=== PATIENT | male | born 1995 ===

== ENCOUNTER 2019-04-07 08:09 | Emergency (ER) | payer SELFPAY ==
[2019-04-07] MEDS ORDERED: NA CHLORIDE 0.9% 1,000 ML ONE ×2 (08:44→10:31)
[2019-04-07] MEDS ORDERED: MORPHINE 4 MG/ML SYR ONE (08:44)
[2019-04-07] MEDS ORDERED: ONDANSETRON 4 MG/2 ML VIAL ONE (08:44)
--- NOTE | 2019-04-07 09:06 | RAD REPORT ---
EXAM DESCRIPTION: CT - Stone Protocol - 04/07/2019 8:54 am CLINICAL HISTORY: Flank pain. FLANK PAIN COMPARISON: No comparisons TECHNIQUE: Axial images were obtained without oral or IV contrast. Lack of contrast limits solid org an and vascular assessment. The [id number] spans the entirety of the system partially obscuring uppermost abdomen and lung bases. Coronal reformatted images were obtained and reviewed. All CT scans are performed using dose optimization technique as appropriate and may include automated exposure control or mA/KV adjustment according to patient size. FINDINGS: The lower lung mckeon are clear. Imaged portions of the liver and spleen show no suspicious findings on non-contrast imaging. The panc reas and adrenal glands are normal. No pathologic lymphadenopathy in the abdomen or pelvis. 7 mm stone proximal left ureter (1400 HU) with mild left hydronephrosis. No bowel obstruction, free air, free fluid or abscess. Normal appendix noted. No significant bony abnormality. IMPRESSION: 7 mm mildly obstructing proximal left ureter stone.
[2019-04-07 09:25] LABS: Absolute Lymphocytes (CBC) 1.3 K/uL (0.7-4.9); Absolute Monocytes 0.7 K/uL (0.1-1.3); Absolute Neutrophil 9.5 K/uL (1.8-8.0); Basophils % 0.5 % (0-1.3); Eosinophils % 0.8 % (0-4.4); Hematocrit 44.6 % (39.6-49.0); MPV 7.2 fL (7.6-11.3); Monocytes % 5.9 % (3.3-12.3)
[2019-04-07] MEDS ORDERED: KETOROLAC 30 MG/ML INJ ONE (09:28)
[2019-04-07] MEDS ORDERED: TAMSULOSIN 0.4 MG SR CAP ONE (09:28)
[2019-04-07 09:34] LABS: ALT/SGPT 34 U/L (12-78); AST/SGOT 19 U/L (15-37); Albumin 4.5 g/dL (3.4-5.0); Alkaline Phosphatase 73 U/L (45-117); BUN Blood Urea Nitrogen 14 mg/dL (7-18); Bicarbonate 30 mmol/L (21-32); Bilirubin Direct 0.1 mg/dL (0-0.2); Bilirubin Total 0.3 mg/dL (0.2-1.0); Glucose Level 115 mg/dL (74-106); Lipase 130 U/L (73-393); Potassium 4.1 mmol/L (3.5-5.1); Protein, Total 7.7 g/dL (6.4-8.2); Sodium Level 143 mmol/L (136-145)
[2019-04-07 11:30] LABS: Urine Amorphous Sediment 2+ /HPF (NONE SEEN); Urine Bacteria <20 /HPF (NONE SEEN); Urine Culture Reflex Order NOT NEEDED; Urine RBC >50 /HPF (NONE SEEN)
--- NOTE | 2019-04-07 11:54 | ER ---
Nurse's Notes [facility] Name: Brad Feliciano Age: 23 yrs Sex: Male : 1995 Arrival Date: 04/07/2019 Time: 08:13 Bed 18 Private MD: Diagnosis: Left ureteral calculous Presentation: 04/07 08:24 Presenting complaint: Patient states: c/o left lower quad pain that started this em morning at 0600, reports subjective fever, nausea and vomiting x 3, denies burning with urination, diarrhea, normal BM yesterday. Transition of care: patient was not received from another setting of care. Onset of symptoms was April 07, 2019. Risk Assessment: Do you want to hurt yourself or someone else? Patient reports no desire to harm self or others. Initial Sepsis Screen: Does the patient meet any 2 criteria? No. Patient's initial sepsis screen is negative. Does the patient have a suspected source of infection? No. Patient's initial sepsis screen is negative. Care prior to arrival: None. 08:24 Method Of Arrival: Ambulatory em 08:29 Acuity: HEATH 3 iw Triage Assessment: 08:27 General: Appears in no apparent distress. uncomfortable, Behavior is cooperative, em anxious. Pain: Denies pain. Historical: - Allergies: 08:27 No Known Allergies; em - Home Meds: 08:27 None [Active]; em - PMHx: 08: None; em - PSHx: 08:27 None; em - Immunization history:: Adult Immunizations unknown. - Social history:: Smoking status: Patient/guardian denies using tobacco. - Ebola Screening: : Patient negative for fever greater than or equal to 101.5 degrees Fahrenheit, and additional compatible Ebola Virus Disease symptoms Patient denies exposure to infectious person Patient denies travel to an Ebola-affected area in the 21 days before illness onset No symptoms or risks identified at this time. Screenin:27 Abuse screen: Denies threats or abuse. Nutritional screening: No deficits noted. em Tuberculosis screening: No symptoms or risk factors identified. Fall Risk None identified. Assessment: 08:27 General: Appears in no apparent distress. uncomfortable, Behavior is cooperative, em anxious, Reports "feeling hot". Pain: Complains of pain in left lower quadrant Pain currently is 7 out of 10 on a pain scale. Quality of pain is described as sharp, Pain began 2 hours ago. Is continuous. Neuro: Level of Consciousness is awake, alert, obeys commands, Oriented to person, place, time, situation. Cardiovascular: Capillary refill < 3 seconds Patient's skin is warm and dry. Respiratory: Airway is patent Respiratory effort is even, unlabored, Respiratory pattern is regular, symmetrical. GI: Abdomen is flat, Bowel sounds present X 4 quads. Reports nausea, vomiting, Patient currently denies diarrhea. : Denies burning with urination. Derm: Skin is intact, is healthy with good turgor, Skin is pink, warm \\T\\ dry. Musculoskeletal: Capillary refill < 3 seconds, Range of motion: intact in all extremities. 08:50 Reassessment: rates pain 3/10 Patient states feeling better. em 09:45 Reassessment: Patient appears in no apparent distress at this time. Patient and/or em family updated on plan of care and expected duration. Pain level reassessed. Patient is alert, oriented x 3, equal unlabored respirations, skin warm/dry/pink. Patient states feeling better. 10:30 Reassessment: Patient appears in no apparent distress at this time. Patient and/or em family updated on plan of care and expected duration. Pain level reassessed. Patient is alert, oriented x 3, equal unlabored respirations, skin warm/dry/pink. 12:08 Reassessment: Patient appears in no apparent distress at this time. Patient and/or em family updated on plan of care and expected duration. Pain level reassessed. Patient is alert, oriented x 3, equal unlabored respirations, skin warm/dry/pink. Patient states feeling better. Patient states symptoms have improved. Vital Signs: 08:27 BP 151 / 82; Pulse 88; Resp 18; Temp 98.8(O); Pulse Ox 99% on R/A; Weight 96.62 kg; em Height 6 ft. 0 in. (182.88 cm); Pain 7/10; 09:30 BP 123 / 73; Pulse 96; Resp 18; Pulse Ox 99% on R/A; Pain 3/10; em 10:30 BP 124 / 78; Pulse 95; Resp 18; Pulse Ox 97% on R/A; Pain 3/10; em 11:52 BP 98 / 61; Pulse 70; Resp 16; Temp 97.6(O); Pulse Ox 99% on R/A; mh5 08:27 Body Mass Index 28.89 (96.62 kg, 182.88 cm) em ED Course: 08:13 Patient arrived in ED. tw3 08:17 Joo Godinez LVN is Primary Nurse. em 08:19 Neeraj Keller, PNEUMATIC TESTER MECHANIC is PHCP. pm1 08:19 Luis Kirkpatrick MD is Attending Physician. pm1 08:27 Arm band placed on. em 08:27 Patient has correct armband on for positive identification. Placed in gown. Bed in low em position. Adult w/ patient. Pulse ox on. NIBP on. 08:29 Triage completed. iw 08:35 Initial lab(s) drawn, by me, sent to lab. Inserted saline lock: 20 gauge in right em antecubital area, using aseptic technique. Blood collected. 08:[address] eh 08:53 CT completed. Patient tolerated procedure well. Patient moved back from CT. bq 08:54 CT Stone Protocol In Process Unspecified. EDMS 11:57 Kevin Stacy MD is Referral Physician. pm1 12:08 No provider procedures requiring assistance completed. IV discontinued, intact, em bleeding controlled, No redness/swelling at site. Pressure dressing applied. Administered Medications: 08:35 Drug: NS 0.9% 1000 ml Route: IV; Rate: 1000 ml; Site: right antecubital; iw 10:28 Follow up: IV Status: Completed infusion; IV Intake: 1000ml em 08:38 Drug: Zofran 4 mg Route: IVP; Site: right antecubital; iw 09:00 Follow up: Response: No adverse reaction; Nausea is decreased em 08:40 Drug: morphine 4 mg Route: IVP; Site: right antecubital; iw 09:00 Follow up: Response: No adverse reaction; Pain is decreased em 09:17 Drug: TORadol 30 mg Route: IVP; Site: right antecubital; iw 10:11 Follow up: Response: No adverse reaction; Pain is decreased em 09:20 Drug: Flomax 0.4 mg Route: PO; em 10:11 Follow up: Response: No adverse reaction em 10:28 Drug: NS 0.9% 1000 ml Route: IV; Rate: 1000 ml; Site: right antecubital; em 11:51 Follow up: IV Status: Completed infusion; IV Intake: 1000ml em 12:07 Drug: Cipro 500 mg Route: PO; em 12:09 Follow up: Response: Medication administered at discharge. em Intake: 10:28 IV: 1000ml; Total: 1000ml. em 11:51 IV: 1000ml; Total: 2000ml. em Outcome: 11:54 Discharge ordered by MD. pm1 12:08 Discharged to home ambulatory, with family. em 12:08 Condition: good 12:08 Discharge instructions given to patient, family, Instructed on discharge instructions, follow up and referral plans. medication usage, Demonstrated understanding of instructions, follow-up care, medications, Prescriptions given X 4. 12:09 Patient left the ED. em Signatures: Dispatcher [employer] EDStephen Dickens Betty bq Munoz, Edgar, MGMT CONSULTANT MGMT CONSULTANT em Karen Marroquin RN RN iw Marinas, Patrick, MOODY PNEUMATIC TESTER MECHANIC 1 Lianet Boyd [facility] [place], [place]orene 3
--- NOTE | 2019-04-07 11:54 | EDPHYS ---
Physician Documentation [facility] Name: Brad Feliciano Age: 23 yrs Sex: Male : 1995 Arrival Date: 04/07/2019 Time: 08:13 Bed 18 Private MD: ED Physician Luis Kirkpatrick HPI: 04/07 08:32 This 23 yrs old Male presents to ER via Ambulatory with complaints of Left pm1 Side Pain. 08:32 The patient complains of pain in the left low back. The pain radiates to the left lower pm1 quadrant. Onset: The symptoms/episode began/occurred this morning. Modifying factors: The symptoms are alleviated by nothing. the symptoms are aggravated by nothing. Associated signs and symptoms: Pertinent positives: nausea, vomiting, Pertinent negatives: diarrhea, dysuria, fever. Severity of pain: in the emergency department the pain is unchanged. The patient has experienced a previous episode, that went away without intervention. The patient has not recently seen a physician. Patient with constant left flank pain the waxes and wanes. No testicular pain or urinary symptoms. Historical: - Allergies: 08:27 No Known Allergies; em - Home Meds: 08:27 None [Active]; em - PMHx: 08: None; em - PSHx: 08:27 None; em - Immunization history:: Adult Immunizations unknown. - Social history:: Smoking status: Patient/guardian denies using tobacco. - Ebola Screening: : Patient negative for fever greater than or equal to 101.5 degrees Fahrenheit, and additional compatible Ebola Virus Disease symptoms Patient denies exposure to infectious person Patient denies travel to an Ebola-affected area in the 21 days before illness onset No symptoms or risks identified at this time. ROS: 08:37 Constitutional: Negative for fever, chills, and weight loss, Eyes: Negative for injury, pm1 pain, redness, and discharge, ENT: Negative for injury, pain, and discharge, Neck: Negative for injury, pain, and swelling, Cardiovascular: Negative for chest pain, palpitations, and edema, Respiratory: Negative for shortness of breath, cough, wheezing, and pleuritic chest pain. 08:37 : Negative for injury, bleeding, discharge, and swelling, MS/Extremity: Negative for injury and deformity, Skin: Negative for injury, rash, and discoloration, Neuro: Negative for headache, weakness, numbness, tingling, and seizure. 08:37 Abdomen/GI: Positive for nausea, Negative for vomiting, diarrhea, constipation. 08:37 Back: Positive for flank pain, on the left. Exam: 08:37 Constitutional: This is a well developed, well nourished patient who is awake, alert, pm1 and in no acute distress. Head/Face: Normocephalic, atraumatic. Eyes: Pupils equal round and reactive to light, extra-ocular motions intact. Lids and lashes normal. Conjunctiva and sclera are non-icteric and not injected. Cornea within normal limits. Periorbital areas with no swelling, redness, or edema. ENT: Nares patent. No nasal discharge, no septal abnormalities noted. Tympanic membranes are normal and external auditory canals are clear. Oropharynx with no redness, swelling, or masses, exudates, or evidence of obstruction, uvula midline. Mucous membranes moist. Neck: Trachea midline, no thyromegaly or masses palpated, and no cervical lymphadenopathy. Supple, full range of motion without nuchal rigidity, or vertebral point tenderness. No Meningismus. Chest/axilla: Normal chest wall appearance and motion. Nontender with no deformity. No lesions are appreciated. Cardiovascular: Regular rate and rhythm with a normal S1 and S2. No gallops, murmurs, or rubs. Normal PMI, no JVD. No pulse deficits. Respiratory: Lungs have equal breath sounds bilaterally, clear to auscultation and percussion. No rales, rhonchi or wheezes noted. No increased work of breathing, no retractions or nasal flaring. Abdomen/GI: Soft, non-tender, with normal bowel sounds. No distension or tympany. No guarding or rebound. No evidence of tenderness throughout. Skin: Warm, dry with normal turgor. Normal color with no rashes, no lesions, and no evidence of cellulitis. MS/ Extremity: Pulses equal, no cyanosis. Neurovascular intact. Full, normal range of motion. 08:37 Back: normal spinal alignment noted, CVA tenderness, that is mild, is noted on the left. 08:37 Neuro: Orientation: is normal, Motor: is normal, moves all fours, Sensation: is normal, no obvious gross deficits, Gait: is steady, at a normal pace, without difficulty. Vital Signs: 08:27 BP 151 / 82; Pulse 88; Resp 18; Temp 98.8(O); Pulse Ox 99% on R/A; Weight 96.62 kg; em Height 6 ft. 0 in. (182.88 cm); Pain 7/10; 09:30 BP 123 / 73; Pulse 96; Resp 18; Pulse Ox 99% on R/A; Pain 3/10; em 10:30 BP 124 / 78; Pulse 95; Resp 18; Pulse Ox 97% on R/A; Pain 3/10; em 11:52 BP 98 / 61; Pulse 70; Resp 16; Temp 97.6(O); Pulse Ox 99% on R/A; mh5 08:27 Body Mass Index 28.89 (96.62 kg, 182.88 cm) em MDM: 08:23 Patient medically screened. pm1 11:49 Data reviewed: vital signs. Data interpreted: Pulse oximetry: on room air is 97 %. pm1 Interpretation: normal. Counseling: I had a detailed discussion with the patient and/or guardian regarding: the historical points, exam findings, and any diagnostic results supporting the discharge/admit diagnosis, lab results, radiology results, the need for outpatient follow up, for definitive care, a urologist, to return to the emergency department if symptoms worsen or persist or if there are any questions or concerns that arise at home. 12:00 ED course: Patient without vomiting and pain. No UTI present. Therefore will trial pm1 patient at home with prescription medications. Return precautions given to patient. 04/07 08:30 Order name: Basic Metabolic Panel pm1 04/07 08:30 Order name: CBC with Diff; Complete Time: 09:33 pm04/07 08:30 Order name: Creatinine for Radiology; Complete Time: 09:33 pm04/07 08:30 Order name: Hepatic Function; Complete Time: 09:40 pm1 04/07 08:30 Order name: Lipase; Complete Time: 09:40 pm04/07 08:31 Order name: Basic Metabolic Panel; Complete Time: 09:40 EDMS 04/07 08:30 Order name: CT Stone Protocol; Complete Time: 09:12 pm04/07 10:37 Order name: Urine Microscopic Only; Complete Time: 11:42 pm1 04/07 10:44 Order name: Urine Dipstick--Ancillary (enter results) bd 04/07 08:30 Order name: IV Saline Lock; Complete Time: 08:43 pm1 04/07 08:30 Order name: Labs collected and sent; Complete Time: 08:43 pm1 04/07 08:30 Order name: Urine Dipstick-Ancillary (obtain specimen); Complete Time: 10:46 pm1 Administered Medications: 08:35 Drug: NS 0.9% 1000 ml Route: IV; Rate: 1000 ml; Site: right antecubital; iw 10:28 Follow up: IV Status: Completed infusion; IV Intake: 1000ml em 08:38 Drug: Zofran 4 mg Route: IVP; Site: right antecubital; iw 09:00 Follow up: Response: No adverse reaction; Nausea is decreased em 08:40 Drug: morphine 4 mg Route: IVP; Site: right antecubital; iw 09:00 Follow up: Response: No adverse reaction; Pain is decreased em 09:17 Drug: TORadol 30 mg Route: IVP; Site: right antecubital; iw 10:11 Follow up: Response: No adverse reaction; Pain is decreased em 09:20 Drug: Flomax 0.4 mg Route: PO; em 10:11 Follow up: Response: No adverse reaction em 10:28 Drug: NS 0.9% 1000 ml Route: IV; Rate: 1000 ml; Site: right antecubital; em 11:51 Follow up: IV Status: Completed infusion; IV Intake: 1000ml em 12:07 Drug: Cipro 500 mg Route: PO; em 12:09 Follow up: Response: Medication administered at discharge. em Disposition: 04/07/19 11:54 Discharged to Home. Impression: Left ureteral calculous. - Condition is Stable. - Discharge Instructions: Kidney Stones, Dietary Guidelines to Help Prevent Kidney Stones. - Prescriptions for Tylenol- Codeine #3 300-30 mg Oral Tablet - take 2 tablets by ORAL route every 6 hours As needed; 20 tablet. Zofran 4 mg Oral Tablet - take 1 tablet by ORAL route every 8 hours As needed; 20 tablet. Flomax 0.4 mg Oral Capsule, Sust. Release 24 hr - take 1 capsule by ORAL route once daily 1/2 hour following the same meal each day; 30 capsule. Cipro 500 mg Oral Tablet - take 1 tablet by ORAL route every 12 hours for 7 days; 14 tablet. - Medication Reconciliation Form, Thank You Letter, Antibiotic Education, Prescription Opioid Use form. - Follow up: Emergency Department; When: As needed; Reason: Worsening of condition. Follow up: Private Physician; When: 2 - 3 days; Reason: Recheck today's complaints, Continuance of care, Re-evaluation by your physician. Follow up: Kevin Stacy MD; When: 2 - 3 days; Reason: Recheck today's complaints, Continuance of care, Re-evaluation by your physician. - Problem is new. - Symptoms have improved. Addendum: 04/11/2019 20:34 Co-signature as Attending Physician, Luis Kirkpatrick MD. g s Signatures: Dispatcher [employer] EDMS Joo Godinez, COMPENSATION PROGRAMS MANAGER COMPENSATION PROGRAMS MANAGER em Karen Marroquin RN RN iw Neerja Keller, PROFESSOR OF FORESTRY PROFESSOR OF FORESTRY pm1 Luis iKrkpatrick MD MD Corrections: (The following items were deleted from the chart) 04/07 11:57 11:54 04/07/2019 11:54 Discharged to Home. Impression: Left ureteral calculous. pm1 Condition is Stable. Forms are Medication Reconciliation Form, Thank You Letter, Antibiotic Education, Prescription Opioid Use. Follow up: Emergency Department; When: As needed; Reason: Worsening of condition. Follow up: Private Physician; When: 2 - 3 days; Reason: Recheck today's complaints, Continuance of care, Re-evaluation by your physician. Problem is new. Symptoms have improved. pm1 12:09 11:57 04/07/2019 11:54 Discharged to Home. Impression: Left ureteral calculous. em Condition is Stable. Discharge Instructions: Kidney Stones, Dietary Guidelines to Help Prevent Kidney Stones. Prescriptions for Tylenol-Codeine #3 300-30 mg Oral Tablet - take 2 tablets by ORAL route every 6 hours As needed; 20 tablet, Zofran 4 mg Oral Tablet - take 1 tablet by ORAL route every 8 hours As needed; 20 tablet, Flomax 0.4 mg Oral Capsule, Sust. Release 24 hr - take 1 capsule by ORAL route once daily 1/2 hour following the same meal each day; 30 capsule, Cipro 500 mg Oral Tablet - take 1 tablet by ORAL route every 12 hours for 7 days; 14 tablet. and Forms are Medication Reconciliation Form, Thank You Letter, Antibiotic Education, Prescription Opioid Use. Follow up: Emergency Department; When: As needed; Reason: Worsening of condition. Follow up: Private Physician; When: 2 - 3 days; Reason: Recheck today's complaints, Continuance of care, Re-evaluation by your physician. Follow up: Kevin Stacy; When: 2 - 3 days; Reason: Recheck today's complaints, Continuance of care, Re-evaluation by your physician. Problem is new. Symptoms have improved. pm1
[2019-04-07] MEDS ORDERED: CIPROFLOXACIN HCL 500 MG TAB ONE (12:03)
[2019-04-07 12:15] LABS: Urine Blood 2+ (NEG); Urine Glucose NEGATIVE (NEG); Urine Protein 1+ (NEG)
== END 2019-04-07 12:09 | disposition home or self-care (01) ==
LOC: ER 08:09
DX: N20.1 Calculus of ureter (principal)
CPT/HCPCS: 36415; 74176; 76377; 80048; 80076; 81003; 81015; 83690; 85025; 96361; 96374; 96375; 99284; J2405; J7030

== ENCOUNTER 2019-04-11 23:53 | Emergency (ER) | payer SELFPAY ==
[2019-04-12] MEDS ORDERED: KETOROLAC 30 MG/ML INJ ONE (00:30)
[2019-04-12] MEDS ORDERED: NA CHLORIDE 0.9% 1,000 ML ONE (00:30)
[2019-04-12 00:57] LABS: Absolute Lymphocytes (CBC) 1.2 K/uL (0.7-4.9); Absolute Monocytes 0.8 K/uL (0.1-1.3); Absolute Neutrophil 7.3 K/uL (1.8-8.0); Basophils % 0.4 % (0-1.3); Eosinophils % 0.7 % (0-4.4); Hematocrit 44.7 % (39.6-49.0); Lymphocytes % 12.7 % (15.3-44.8); MPV 7.2 fL (7.6-11.3); Monocytes % 8.1 % (3.3-12.3); RBC Red Blood Cell Count 5.29 M/uL (4.33-5.43)
[2019-04-12 01:02] LABS: Albumin 4.4 g/dL (3.4-5.0); Bilirubin Direct 0.1 mg/dL (0-0.2); Bilirubin Total 0.4 mg/dL (0.2-1.0); Potassium 3.6 mmol/L (3.5-5.1); Protein, Total 7.7 g/dL (6.4-8.2)
[2019-04-12 01:10] LABS: Urine Blood 2+ (NEG); Urine Glucose NEGATIVE (NEG); Urine Protein 1+ (NEG); Urine Specific Gravity 1.025 (1.005-1.030)
[2019-04-12 01:23] LABS: Urine Amorphous Sediment 4+ /HPF (NONE SEEN)
[2019-04-12 01:24] LABS: Urine Bacteria <20 /HPF (NONE SEEN); Urine Culture Reflex Order NOT NEEDED
[2019-04-12] MEDS ORDERED: ONDANSETRON 4 MG/2 ML VIAL ONE (02:27)
--- NOTE | 2019-04-12 02:43 | ER ---
Nurse's Notes [facility] Name: Brad Feliciano Age: 23 yrs Sex: Male : 1995 Arrival Date: 04/11/2019 Time: 23:57 Bed 14 Private MD: Diagnosis: Hydronephrosis with renal and ureteral calculous obstruction Presentation: 04/12 00:03 Presenting complaint: Patient states: My left side hurts. Transition of care: patient ed1 was not received from another setting of care. Onset of symptoms was April 12, 2019. Risk Assessment: Do you want to hurt yourself or someone else? Patient reports no desire to harm self or others. Initial Sepsis Screen: Does the patient meet any 2 criteria? No. Patient's initial sepsis screen is negative. Does the patient have a suspected source of infection? No. Patient's initial sepsis screen is negative. Care prior to arrival: None. 00:03 Method Of Arrival: Ambulatory ed1 00:03 Acuity: HEATH 3 ed1 Triage Assessment: 00:03 General: Appears uncomfortable, Behavior is calm, cooperative. Pain: Complains of pain ed1 in left side Pain currently is 8 out of 10 on a pain scale. Historical: - Allergies: 00:03 No Known Allergies; ed1 - Home Meds: 00:03 None [Active]; ed1 - PMHx: 00:03 None; ed1 - PSHx: 00:03 None; ed1 - Immunization history:: Adult Immunizations up to date. - Social history:: Smoking status: Patient/guardian denies using tobacco. - Ebola Screening: : Patient negative for fever greater than or equal to 101.5 degrees Fahrenheit, and additional compatible Ebola Virus Disease symptoms Patient denies exposure to infectious person Patient denies travel to an Ebola-affected area in the 21 days before illness onset No symptoms or risks identified at this time. Screenin:34 Abuse screen: Denies threats or abuse. Denies injuries from another. Nutritional wh screening: No deficits noted. Tuberculosis screening: No symptoms or risk factors identified. Fall Risk None identified. Assessment: 00:40 General: Appears in no apparent distress. Behavior is calm, cooperative, appropriate wh for age. Pain: Complains of pain in low back area and left low back Pain does not radiate. Pain currently is 7 out of 10 on a pain scale. Pain began 4 hours ago. Neuro: Level of Consciousness is awake, alert, obeys commands, Oriented to person, place, time, situation, Appropriate for age. Cardiovascular: Capillary refill < 3 seconds. Respiratory: Airway is patent Respiratory effort is even, unlabored, Respiratory pattern is regular, symmetrical, Breath sounds are clear. GI: Abdomen is flat, non-distended, Abd is soft and non tender. : No signs and/or symptoms were reported regarding the genitourinary system. EENT: No signs and/or symptoms were reported regarding the EENT system. Derm: Skin is intact, is healthy with good turgor, Skin is pink, warm \T\ dry. normal. Musculoskeletal: Range of motion: intact in all extremities. 02:16 Reassessment: Patient appears in no apparent distress at this time. Patient and/or wh family updated on plan of care and expected duration. Pain level reassessed. Patient is alert, oriented x 3, equal unlabored respirations, skin warm/dry/pink. 03:40 Reassessment: Patient appears in no apparent distress at this time. Patient and/or wh family updated on plan of care and expected duration. Pain level reassessed. Patient is alert, oriented x 3, equal unlabored respirations, skin warm/dry/pink. Patient denies pain at this time. Patient states feeling better. Patient states symptoms have improved. Vital Signs: 00:03 BP 150 / 84; Pulse 104; Resp 20; Temp 98.5; Pulse Ox 97% on R/A; Weight 96.62 kg; ed1 Height 6 ft. 0 in. (182.88 cm); Pain 8/10; 00:42 BP 138 / 79; Pulse 85; Resp 18; Pulse Ox 99% on R/A; wh 02:17 BP 136 / 86; Pulse 87; Resp 18; Pulse Ox 98% on R/A; wh 00:03 Body Mass Index 28.89 (96.62 kg, 182.88 cm) ed1 ED Course: 04/11 23:57 Patient arrived in ED. es 04/12 00:03 Triage completed. ed1 00:03 Arm band placed on. ed1 00:12 Neeraj Keller NP is PHCP. pm1 00:12 Luis Kirkpatrick MD is Attending Physician. pm1 00:17 Sanchez Christy is Primary Nurse. 00:28 Inserted saline lock: 20 gauge in right antecubital area, using aseptic technique. Blood collected. 00:34 Patient has correct armband on for positive identification. Bed in low position. Call light in reach. Side rails up X 1. Pulse ox on. NIBP on. 01:45 CT Stone Protocol In Process Unspecified. EDMS 02:41 Kevin Stacy MD is Referral Physician. pm1 03:41 No provider procedures requiring assistance completed. IV discontinued, intact, bleeding controlled, No redness/swelling at site. 04:12 Abdomen 1 View (KUB) XRAY In Process Unspecified. EDMS Administered Medications: 00:33 Drug: NS 0.9% 1000 ml Route: IV; Rate: 1000 ml; Site: right antecubital; 03:40 Follow up: Response: No adverse reaction; IV Status: Completed infusion 00:33 Drug: TORadol 30 mg Route: IVP; Site: right antecubital; 03:39 Follow up: Response: No adverse reaction 02:16 Drug: Zofran 4 mg Route: IVP; Site: right antecubital; 03:11 Follow up: Response: No adverse reaction 03:39 Not Given (Pt not in pain ): morphine 4 mg IVP once Outcome: 02:41 Discharge ordered by . pm1 03:41 Discharged to home ambulatory, with significant other. 03:41 Condition: good 03:41 Discharge instructions given to patient, Instructed on discharge instructions, follow up and referral plans. no drinking with medication, no driving heavy equipment, medication usage, POC kidney stones, Hydronephrosis Demonstrated understanding of instructions, follow-up care, medications, POC Prescriptions given X 1. 03:42 Patient left the ED. Signatures: Dispatcher [employer] EDMS Karyna Martinez Erika, RN RN ed1 Neeraj Keller, CORK GRINDER CORK GRINDER pm1 Sanchez Christy
--- NOTE | 2019-04-12 02:43 | EDPHYS ---
Physician Documentation [facility] Name: Brad Feliciano Age: 23 yrs Sex: Male : 1995 Arrival Date: 04/11/2019 Time: 23:57 Bed 14 Private MD: ED Physician Luis Kirkpatrick HPI: 04/12 00:44 This 23 yrs old Male presents to ER via Ambulatory with complaints of Flank pm1 Pain. 00:44 The patient complains of pain in the left low back. The pain does not radiate. Onset: pm1 The symptoms/episode began/occurred 4 day(s) ago. Modifying factors: The symptoms are alleviated by nothing. the symptoms are aggravated by nothing. Associated signs and symptoms: Pertinent positives: nausea, Pertinent negatives: dysuria, fever, vomiting. Severity of pain: in the emergency department the pain is actually worse. The patient has been recently seen at the [facility] Emergency Department, for similar complaints labs were performed, CT scan was performed, was given a prescription for antibiotics, was given a prescription for pain medications, was given a prescription for an antiemetic, diagnosed with left ureteral calculous. Patient without any pain since discharge on Monday. Patient with onset of left flank pain with nausea today. Historical: - Allergies: 00:03 No Known Allergies; ed1 - Home Meds: 00:03 None [Active]; ed1 - PMHx: 00:03 None; ed1 - PSHx: 00:03 None; ed1 - Immunization history:: Adult Immunizations up to date. - Social history:: Smoking status: Patient/guardian denies using tobacco. - Ebola Screening: : Patient negative for fever greater than or equal to 101.5 degrees Fahrenheit, and additional compatible Ebola Virus Disease symptoms Patient denies exposure to infectious person Patient denies travel to an Ebola-affected area in the 21 days before illness onset No symptoms or risks identified at this time. ROS: 00:44 Constitutional: Negative for fever, chills, and weight loss, Eyes: Negative for injury, pm1 pain, redness, and discharge, ENT: Negative for injury, pain, and discharge, Neck: Negative for injury, pain, and swelling, Cardiovascular: Negative for chest pain, palpitations, and edema, Respiratory: Negative for shortness of breath, cough, wheezing, and pleuritic chest pain. 00:44 : Negative for injury, bleeding, discharge, and swelling, MS/Extremity: Negative for injury and deformity, Skin: Negative for injury, rash, and discoloration, Neuro: Negative for headache, weakness, numbness, tingling, and seizure. 00:44 Abdomen/GI: Positive for nausea, Negative for abdominal pain, vomiting, diarrhea, constipation. 00:44 Back: Positive for flank pain, on the left. Exam: 00:44 Constitutional: This is a well developed, well nourished patient who is awake, alert, pm1 and in no acute distress. Head/Face: Normocephalic, atraumatic. Eyes: Pupils equal round and reactive to light, extra-ocular motions intact. Lids and lashes normal. Conjunctiva and sclera are non-icteric and not injected. Cornea within normal limits. Periorbital areas with no swelling, redness, or edema. ENT: Nares patent. No nasal discharge, no septal abnormalities noted. Tympanic membranes are normal and external auditory canals are clear. Oropharynx with no redness, swelling, or masses, exudates, or evidence of obstruction, uvula midline. Mucous membranes moist. Neck: Trachea midline, no thyromegaly or masses palpated, and no cervical lymphadenopathy. Supple, full range of motion without nuchal rigidity, or vertebral point tenderness. No Meningismus. Chest/axilla: Normal chest wall appearance and motion. Nontender with no deformity. No lesions are appreciated. Cardiovascular: Regular rate and rhythm with a normal S1 and S2. No gallops, murmurs, or rubs. Normal PMI, no JVD. No pulse deficits. Respiratory: Lungs have equal breath sounds bilaterally, clear to auscultation and percussion. No rales, rhonchi or wheezes noted. No increased work of breathing, no retractions or nasal flaring. Abdomen/GI: Soft, non-tender, with normal bowel sounds. No distension or tympany. No guarding or rebound. No evidence of tenderness throughout. Back: No spinal tenderness. No costovertebral tenderness. Full range of motion. Skin: Warm, dry with normal turgor. Normal color with no rashes, no lesions, and no evidence of cellulitis. MS/ Extremity: Pulses equal, no cyanosis. Neurovascular intact. Full, normal range of motion. 00:44 Neuro: Orientation: is normal, Motor: is normal, moves all fours, Gait: is steady, at a normal pace, without difficulty. Vital Signs: 00:03 BP 150 / 84; Pulse 104; Resp 20; Temp 98.5; Pulse Ox 97% on R/A; Weight 96.62 kg; ed1 Height 6 ft. 0 in. (182.88 cm); Pain 8/10; 00:42 BP 138 / 79; Pulse 85; Resp 18; Pulse Ox 99% on R/A; wh 02:17 BP 136 / 86; Pulse 87; Resp 18; Pulse Ox 98% on R/A; wh 00:03 Body Mass Index 28.89 (96.62 kg, 182.88 cm) ed1 MDM: 00:18 Patient medically screened. pm1 00:47 Data reviewed: vital signs. Data interpreted: Pulse oximetry: on room air is 99 %. pm1 Interpretation: normal. 02:35 Physician consultation: Kevin Stacy MD was called at 02:35, was contacted at 02:35, pm1 regarding consult, patient's condition, and will see patient in office, in AM today. send patient with KUB. 02:38 Counseling: I had a detailed discussion with the patient and/or guardian regarding: the pm1 historical points, exam findings, and any diagnostic results supporting the discharge/admit diagnosis, lab results, radiology results, the need for outpatient follow up, for definitive care, a urologist, to return to the emergency department if symptoms worsen or persist or if there are any questions or concerns that arise at home. 02:43 ED course: patient instructed to report to Dr. Stacy's office at 0800 today with KUB. pm1 04/12 00:15 Order name: Basic Metabolic Panel; Complete Time: 01: pm1 04/12 00:15 Order name: CBC with Diff; Complete Time: : pm1 04/12 00:15 Order name: Hepatic Function; Complete Time: : pm1 04/12 00:15 Order name: CT Stone Protocol pm1 04/12 00:24 Order name: Urine Microscopic Only; Complete Time: 01:25 pm1 04/12 00:42 Order name: Urine Dipstick--Ancillary (enter results); Complete Time: 01:21 ed1 04/12 00:15 Order name: IV Saline Lock; Complete Time: 00:28 pm1 04/12 00:15 Order name: Labs collected and sent; Complete Time: 00:28 pm1 04/12 00:24 Order name: Urine Dipstick-Ancillary (obtain specimen); Complete Time: 00:28 pm1 04/12 02:44 Order name: Abdomen 1 View (KUB) XRAY pm1 Administered Medications: 00:33 Drug: NS 0.9% 1000 ml Route: IV; Rate: 1000 ml; Site: right antecubital; 03:40 Follow up: Response: No adverse reaction; IV Status: Completed infusion 00:33 Drug: TORadol 30 mg Route: IVP; Site: right antecubital; 03:39 Follow up: Response: No adverse reaction 02:16 Drug: Zofran 4 mg Route: IVP; Site: right antecubital; 03:11 Follow up: Response: No adverse reaction 03:39 Not Given (Pt not in pain ): morphine 4 mg IVP once Disposition: 04/12/19 02:41 Discharged to Home. Impression: Hydronephrosis with renal and ureteral calculous obstruction. - Condition is Stable. - Discharge Instructions: Kidney Stones, Hydronephrosis, Dietary Guidelines to Help Prevent Kidney Stones. - Prescriptions for Tylenol- Codeine #3 300-30 mg Oral Tablet - take 2 tablets by ORAL route every 6 hours As needed; 20 tablet. - Medication Reconciliation Form, Thank You Letter, Antibiotic Education, Prescription Opioid Use form. - Follow up: Emergency Department; When: As needed; Reason: Worsening of condition. Follow up: Kevin Stacy MD; When: Today; Reason: Recheck today's complaints, Continuance of care, Re-evaluation by your physician. - Problem is new. - Symptoms have improved. Addendum: 04/15/2019 01:57 Co-signature as Attending Physician, Luis Kirkpatrick MD. g s Signatures: Dispatcher [employer] EDMS Mishel Smith RN RN ed1 Neeraj Keller, BIODIESEL PRODUCTION TECHNICIAN BIODIESEL PRODUCTION TECHNICIAN pm1 Sanchez Christy Luis Kirkpatrick MD MD Corrections: (The following items were deleted from the chart) 04/12 03:42 02:41 04/12/2019 02:41 Discharged to Home. Impression: Hydronephrosis with renal and wh ureteral calculous obstruction. Condition is Stable. Forms are Medication Reconciliation Form, Thank You Letter, Antibiotic Education, Prescription Opioid Use. Follow up: Emergency Department; When: As needed; Reason: Worsening of condition. Follow up: Kevin Stacy; When: Today; Reason: Recheck today's complaints, Continuance of care, Re-evaluation by your physician. Problem is new. Symptoms have improved. pm1
--- NOTE | 2019-04-12 08:07 | RAD REPORT ---
EXAM DESCRIPTION: RAD - Abdomen 1 View (KUB) - 04/12/2019 4:11 am CLINICAL HISTORY: Left-sided kidney stone COMPARISON: CT stone protocol April 12, 2019 FINDINGS: The 6-8 mm triangular-shaped calcification is present in the medial left mid abdomen. This is the correlate to the obstructing calculus on the CT study. On the KUB projection the obstructing calculus is in close proximity to the L2 left transverse process. No other renal or ureteral calculi seen. No bladder calculus. No obstruction, free air or pneumatosis. Large stool volume present in the colon. No significant bony findings IMPRESSION: The left ureteral obstructing calculus seen on the 04/12/2019 study is seen on a KUB pro jection. The 6-8 mm sized obstructing stone is positioned in close proximity to the L2 left transverse process .
--- NOTE | 2019-04-12 10:31 | RAD REPORT ---
EXAM DESCRIPTION: CT - Stone Protocol - 04/12/2019 1:44 am CLINICAL HISTORY: The patient is 23 years old and is Male; FLANK PAIN TECHNIQUE: Axial computed tomography images of the abdomen and pelvis without intravenous contrast. Sagittal and coronal reformatted images were created and reviewed. This CT exam was performed usi ng one or more of the following dose reduction techniques: automated exposure control, adjustment o f the mA and/or kV according to patient size, and/or use of iterative reconstruction technique. COMPARISON: CT abdomen and pelvis April 07, 2019. FINDINGS: LUNG BASES: Unremarkable. No mass. No consolidation. ABDOMEN: LIVER: Homogeneous without focal mass. GALLBLADDER AND BILE DUCTS: No calcified stones. No ductal dilation. PANCREAS: Unremarkable. No ductal dilation. SPLEEN: Unremarkable. ADRENALS: Unremarkable. No mass. KIDNEYS AND URETERS: Mild left hydronephrosis and proximal hydroureter is present secondary to a 6 mm proximal left ureteral calculus. Edema of the left kidney with worsening left perinephric and periureteral stranding is noted. The right kidney is unremarkable. STOMACH AND BOWEL: The stomach is well distended with food contents. The small bowel is normal i n caliber. A moderate amount stool is present throughout the colon. There is no mucosal thickening or evidence of bowel obstruction. PELVIS: APPENDIX: The appendix is normal in caliber without surrounding inflammation. BLADDER: The bladder is not well distended. REPRODUCTIVE: Unremarkable as visualized. ABDOMEN and PELVIS: INTRAPERITONEAL SPACE: Unremarkable. No free air. No significant fluid collection. BONES/JOINTS: No acute fracture. SOFT TISSUES: The soft tissues are normal. VASCULATURE: Unremarkable. No abdominal aortic aneurysm. LYMPH NODES: Unremarkable. No enlarged lymph nodes. IMPRESSION: Mild left hydronephrosis and proximal hydroureter is present secondary to a 6 mm proxima l left ureteral calculus. The positioning of the calculus is unchanged. However, the degree of hydr onephrosis and edema of the left kidney has increased. Electronically signed by: Jade Delgado MD 04/12/2019 1:49 AM CDT Due to temporary technical issues with the PACS/Fluency reporting system, reports are being signed by the in house radiologist as a courtesy to ensure prompt reporting. The interpreting radiologist is f ully responsible for the content of the report.
== END 2019-04-12 03:42 | disposition home or self-care (01) ==
LOC: ER 23:53
DX: N13.2 Hydronephrosis with renal and ureteral calculous obstruction (principal)
CPT/HCPCS: 36415; 74018; 74176; 76377; 80048; 80076; 81003; 81015; 85025; 96361; 96374; 96375; 99284; J2405; J7030